=== PATIENT | female | born 1965 | race Caucasian/White ===

== ENCOUNTER 2017-05-08 13:20 | Emergency (ER) | payer SELFPAY, OTHER | END 2017-05-08 13:46 | disposition left against medical advice (07) | LOC: E/R 13:20 | DX: Z53.21 Procedure and treatment not carried out due to patient leaving prior to being seen by health care provider (principal) ==

== ENCOUNTER 2017-05-09 05:09 | Inpatient (IN) | payer OTHER ==
[2017-05-09 08:04] LABS: ADD MAN DIFF? NO
[2017-05-09] MEDS: SODIUM CHLORIDE 0.9% 1L BAG IV* (08:12)
[2017-05-09] MEDS: ONDANSETRON 4 MG INJ IV (08:12)
[2017-05-09 08:13] LABS: WHITE BLOOD COUNT 10.5 10^3/ul (4.8-10.8)
[2017-05-09 08:13] LABS: BASOPHIL # 0.1 10^3/ul (0.0-0.1); BASOPHILS % 0.5 % (0.0-2.0); EOSINOPHILS # 0.1 10^3/ul (0.0-0.5); EOSINOPHILS % 0.7 % (0.0-7.0); HEMATOCRIT 41.1 % (37.0-47.0); HEMOGLOBIN 14.3 g/dl (12.0-16.0); LYMPHOCYTES # 1.8 10^3/ul (0.8-2.9); LYMPHOCYTES % 16.6 % (15.0-51.0); MEAN CORPUSCULAR HEMOGLOBIN 31.6 pg (29.0-33.0); MEAN CORPUSCULAR HGB CONC 34.8 g/dl (32.0-37.0); MEAN CORPUSCULAR VOLUME 90.7 fl (82.0-101.0); MONOCYTE # 0.9 10^3/ul (0.3-0.9); MONOCYTES % 8.4 % (0.0-11.0); NEUTROPHIL # 7.7 10^3/ul (1.6-7.5); NEUTROPHILS % 73.3 % (39.0-77.0); NUCLEATED RED BLOOD CELLS% 0.3 /100WBC (0.0-0.0); PLATELET COUNT 284 10^3/UL (140-415); RED BLOOD COUNT 4.53 10^6/ul (4.20-5.40); RED CELL DISTRIBUTION WIDTH 12.3 % (11.5-14.5)
[2017-05-09] MEDS: morphine 4 MG/ML VIAL IV (08:13)
[2017-05-09] MEDS: PIPER-TAZO 3.375 GM IV (PMX) 100 ML IVPB (08:13)
[2017-05-09 08:26] LABS: INR 0.86; PARTIAL THROMBOPLASTIN TIME 26.8 Sec (25.0-35.0); PROTIME 11.8 Sec (11.9-14.9); PT RATIO 0.9
[2017-05-09 08:29] LABS: ALANINE AMINOTRANSFERASE 27 IU/L (13-69); ALBUMIN/GLOBULIN RATIO 1.11; ALKALINE PHOSPHATASE 121 IU/L (42-121); ANION GAP 14 (8-16); ASPARTATE AMINO TRANSFERASE 19 IU/L (15-46); BILIRUBIN,INDIRECT 0.4 mg/dl (0-1.1); BILIRUBIN,TOTAL 0.4 mg/dl (0.2-1.3); BLOOD UREA NITROGEN 18 mg/dl (7-20); CALCIUM 9.8 mg/dl (8.4-10.2); CARBON DIOXIDE 28 mmol/L (21-31); CHLORIDE 100 mmol/L (97-110); CREATININE 0.59 mg/dl (0.44-1.00); GLUCOSE 367 mg/dl (70-220); POTASSIUM 4.4 mmol/L (3.5-5.1); SODIUM 138 mmol/L (135-144); TOTAL PROTEIN 7.6 g/dl (6.1-8.1)
[2017-05-09 08:29] LABS: LACTIC ACID 1.4 mmol/L (0.5-2.0)
[2017-05-09 08:40] LABS: TROPONIN-I < 0.012 ng/ml (0.00-0.12)
[2017-05-09] MEDS: VANCOMYCIN 1 GM (PMX) 250 ML IVPB (09:33)
[2017-05-09] MEDS ORDERED: ONDANSETRON 4 MG INJ IV (11:00)
[2017-05-09] MEDS ORDERED: ACETAMINOPHEN 325 MG TAB PO (11:00)
[2017-05-09 11:24] LABS: LACTIC ACID 1.1 mmol/L (0.5-2.0)
[2017-05-09 13:08] LABS: LACTIC ACID 0.9 mmol/L (0.5-2.0)
[2017-05-09 13:13] LABS: ADD UMIC YES; UR ASCORBIC ACID NEGATIVE (NEGATIVE); UR BACTERIA FEW /HPF (NONE SEEN); UR BILIRUBIN (Dip) NEGATIVE (NEGATIVE); UR BLOOD (Dip) NEGATIVE (NEGATIVE); UR CLARITY CLEAR (CLEAR); UR COLOR STRAW (YELLOW); UR GLUCOSE (Dip) 3+ mg/dL (NEGATIVE); UR KETONES (Dip) TRACE mg/dL (NEGATIVE); UR LEUKOCYTE ESTERASE (Dip) 2+ Leu/ul (NEGATIVE); UR NITRITE (Dip) NEGATIVE (NEGATIVE); UR RBC 2 /HPF (0-5); UR SQUAMOUS EPITHELIAL CELL FEW /HPF (FEW); UR TOTAL PROTEIN (Dip) NEGATIVE (NEGATIVE); UR UROBILINOGEN (Dip) NEGATIVE (NEGATIVE); UR WBC 10 /HPF (0-5)
[2017-05-09] MEDS ORDERED: PIPER-TAZO 3.375 GM IV (PMX) 100 ML IVPB (15:30)
[2017-05-09] MEDS ORDERED: VANCOMYCIN IV PER PHARMACY XX (15:30)
[2017-05-09] MEDS: LEVOFLOXACIN 500MG/D5W (PMX) 100 ML IVPB (16:22)
[2017-05-09] MEDS ORDERED: GLUCOSE GEL 15 GRAM TUBE PO ×2 (18:00)
[2017-05-09] MEDS ORDERED: GLUCOSE GEL 15 GRAM TUBE BUCCAL (18:00)
[2017-05-09] MEDS ORDERED: GLUCAGON 1 MG INJ IM (18:00)
[2017-05-09] MEDS ORDERED: DEXTROSE 50% 50 ML SYRINGE IV ×2 (18:00)
[2017-05-09] MEDS: INSULIN ASPART [NOVOLOG] 3 ML PEN SC (19:20)
[2017-05-09] MEDS: metFORMIN 500 MG TAB PO (19:21)
[2017-05-09 19:36] LABS: CREATINE KINASE 41 IU/L (23-200)
[2017-05-09 19:47] LABS: CK INDEX 3.2; CK-MB 1.32 ng/ml (0.0-2.4)
[2017-05-09 19:52] LABS: TROPONIN-I < 0.012 ng/ml (0.00-0.12)
[2017-05-09] MEDS: GABAPENTIN 300 MG CAP PO (20:37)
[2017-05-09] MEDS: VANCOMYCIN 1.5 GM in DEXTROSE 5% 500 ML IVPB (20:37)
[2017-05-09] MEDS: ATORVASTATIN 20 MG TAB PO (20:37)
[2017-05-09] MEDS: SENNA TAB PO (20:37)
[2017-05-09] MEDS: INSULIN GLARGINE [LANtus] 3 ML PEN SC (20:40)
[2017-05-09] MEDS ORDERED: NON-FORMULARY/PATIENT OWN MED (Sitagliptin Phos/Metformin HCl (Janumet 50-1,000 mg Tablet) PO (21:00)
[2017-05-10 02:30] LABS: CREATINE KINASE 32 IU/L (23-200)
[2017-05-10 02:43] LABS: CK INDEX 2.2; CK-MB 0.71 ng/ml (0.0-2.4)
[2017-05-10 02:44] LABS: TROPONIN-I < 0.012 ng/ml (0.00-0.12)
[2017-05-10 06:08] LABS: ADD MAN DIFF? NO
[2017-05-10 06:20] LABS: BASOPHILS % 0.4 % (0.0-2.0); EOSINOPHILS # 0.2 10^3/ul (0.0-0.5); HEMATOCRIT 35.6 % (37.0-47.0); HEMOGLOBIN 12.1 g/dl (12.0-16.0); LYMPHOCYTES # 2.2 10^3/ul (0.8-2.9); LYMPHOCYTES % 23.6 % (15.0-51.0); MEAN CORPUSCULAR VOLUME 91.3 fl (82.0-101.0); MEAN PLATELET VOLUME 10.7 fl (7.4-10.4); MONOCYTES % 10.7 % (0.0-11.0); NEUTROPHIL # 5.8 10^3/ul (1.6-7.5); PLATELET COUNT 269 10^3/UL (140-415); RED CELL DISTRIBUTION WIDTH 12.4 % (11.5-14.5)
[2017-05-10 06:20] LABS: WHITE BLOOD COUNT 9.2 10^3/ul (4.8-10.8)
[2017-05-10 07:11] LABS: ANION GAP 9 (8-16); BLOOD UREA NITROGEN 13 mg/dl (7-20); CALCIUM 9.3 mg/dl (8.4-10.2); CARBON DIOXIDE 29 mmol/L (21-31); CHLORIDE 103 mmol/L (97-110); CREATININE 0.69 mg/dl (0.44-1.00); GLUCOSE 260 mg/dl (70-220); MAGNESIUM 1.5 mg/dl (1.7-2.5); PHOSPHORUS 3.3 mg/dl (2.5-4.9); POTASSIUM 4.3 mmol/L (3.5-5.1); SODIUM 137 mmol/L (135-144)
[2017-05-10 07:18] LABS: HEMOGLOBIN A1C 11.7 % (0-5.9)
[2017-05-10] MEDS: LORATADINE 10 MG TAB PO (08:11)
[2017-05-10] MEDS: metFORMIN 500 MG TAB PO (08:12)
[2017-05-10] MEDS: LINAGLIPTIN 5 MG TABLET PO (08:12)
[2017-05-10] MEDS: ASPIRIN (EC) 81 MG TAB PO (08:12)
[2017-05-10] MEDS: SENNA TAB PO ×2 (08:12→20:07)
[2017-05-10] MEDS: GABAPENTIN 300 MG CAP PO ×3 (08:12→20:06)
[2017-05-10] MEDS: VANCOMYCIN 750 MG in DEXTROSE 5% 150 ML IVPB ×2 (08:13→20:06)
[2017-05-10] MEDS: INSULIN ASPART [NOVOLOG] 3 ML PEN SC ×6 (08:16→20:14)
[2017-05-10] MEDS: COLLAGENASE 30 GM TUBE TOP (10:57)
[2017-05-10] MEDS: HEPARIN 5,000 UNIT/0.5 ML VIAL SC ×2 (12:02→20:17)
[2017-05-10] MEDS: MAGNESIUM SULFATE 2 GM/50 ML 50 ML IVPB (13:00)
[2017-05-10] MEDS: LEVOFLOXACIN 500MG/D5W (PMX) 100 ML IVPB (15:39)
[2017-05-10] MEDS: ATORVASTATIN 20 MG TAB PO (20:08)
[2017-05-10] MEDS: INSULIN GLARGINE [LANtus] 3 ML PEN SC (20:17)
[2017-05-11] MEDS: ACCU-CHEK XX (01:34)
[2017-05-11 07:45] LABS: ADD MAN DIFF? NO
[2017-05-11 07:52] LABS: WHITE BLOOD COUNT 9.8 10^3/ul (4.8-10.8)
[2017-05-11 07:52] LABS: BASOPHIL # 0.1 10^3/ul (0.0-0.1); BASOPHILS % 0.5 % (0.0-2.0); EOSINOPHILS # 0.1 10^3/ul (0.0-0.5); EOSINOPHILS % 1.1 % (0.0-7.0); HEMATOCRIT 38.1 % (37.0-47.0); HEMOGLOBIN 12.8 g/dl (12.0-16.0); LYMPHOCYTES # 2.3 10^3/ul (0.8-2.9); LYMPHOCYTES % 23.8 % (15.0-51.0); MEAN CORPUSCULAR HEMOGLOBIN 30.9 pg (29.0-33.0); MEAN CORPUSCULAR HGB CONC 33.6 g/dl (32.0-37.0); MEAN PLATELET VOLUME 10.8 fl (7.4-10.4); MONOCYTE # 1.1 10^3/ul (0.3-0.9); NEUTROPHIL # 6.2 10^3/ul (1.6-7.5); NEUTROPHILS % 63.1 % (39.0-77.0); PLATELET COUNT 293 10^3/UL (140-415); RED BLOOD COUNT 4.14 10^6/ul (4.20-5.40); RED CELL DISTRIBUTION WIDTH 12.1 % (11.5-14.5)
[2017-05-11 08:16] LABS: ANION GAP 14 (8-16); BLOOD UREA NITROGEN 16 mg/dl (7-20); CALCIUM 9.4 mg/dl (8.4-10.2); CARBON DIOXIDE 28 mmol/L (21-31); CHLORIDE 102 mmol/L (97-110); CREATININE 0.69 mg/dl (0.44-1.00); GLUCOSE 264 mg/dl (70-220); MAGNESIUM 1.4 mg/dl (1.7-2.5); POTASSIUM 3.9 mmol/L (3.5-5.1); SODIUM 140 mmol/L (135-144)
[2017-05-11 08:16] LABS: PHOSPHORUS 3.9 mg/dl (2.5-4.9)
[2017-05-11 08:18] LABS: VANCOMYCIN,TROUGH 12.1 ug/ml (10.0-20.0)
[2017-05-11] MEDS: GABAPENTIN 300 MG CAP PO ×3 (08:34→20:28)
[2017-05-11] MEDS: ASPIRIN (EC) 81 MG TAB PO (08:34)
[2017-05-11] MEDS: SENNA TAB PO ×2 (08:34→20:28)
[2017-05-11] MEDS: LORATADINE 10 MG TAB PO (08:34)
[2017-05-11] MEDS: COLLAGENASE 30 GM TUBE TOP (08:35)
[2017-05-11] MEDS: HEPARIN 5,000 UNIT/0.5 ML VIAL SC ×2 (08:41→20:31)
[2017-05-11] MEDS: INSULIN ASPART [NOVOLOG] 3 ML PEN SC ×7 (08:41→20:29)
[2017-05-11] MEDS: VANCOMYCIN 750 MG in DEXTROSE 5% 150 ML IVPB ×2 (08:49→20:29)
[2017-05-11] MEDS: MAGNESIUM SULFATE 2 GM/50 ML 50 ML IVPB (13:43)
[2017-05-11] MEDS: LEVOFLOXACIN 500MG/D5W (PMX) 100 ML IVPB (16:20)
[2017-05-11] MEDS: ATORVASTATIN 20 MG TAB PO (20:28)
[2017-05-11] MEDS: INSULIN GLARGINE [LANtus] 3 ML PEN SC (20:33)
[2017-05-11] MEDS ORDERED: INSULIN GLARGINE [LANtus] 3 ML PEN SC (21:00)
[2017-05-12] MEDS: traMADol 50 MG TAB PO (00:08)
[2017-05-12] MEDS: ACCU-CHEK XX (02:00)
[2017-05-12 05:32] LABS: ADD MAN DIFF? NO
[2017-05-12 05:40] LABS: BASOPHIL # 0.1 10^3/ul (0.0-0.1); BASOPHILS % 0.6 % (0.0-2.0); EOSINOPHILS # 0.2 10^3/ul (0.0-0.5); EOSINOPHILS % 2.4 % (0.0-7.0); HEMATOCRIT 40.1 % (37.0-47.0); HEMOGLOBIN 13.7 g/dl (12.0-16.0); LYMPHOCYTES # 2.2 10^3/ul (0.8-2.9); LYMPHOCYTES % 28.4 % (15.0-51.0); MEAN CORPUSCULAR HEMOGLOBIN 31.2 pg (29.0-33.0); MEAN CORPUSCULAR HGB CONC 34.2 g/dl (32.0-37.0); MEAN CORPUSCULAR VOLUME 91.3 fl (82.0-101.0); MEAN PLATELET VOLUME 10.6 fl (7.4-10.4); MONOCYTE # 0.8 10^3/ul (0.3-0.9); MONOCYTES % 9.8 % (0.0-11.0); NEUTROPHIL # 4.6 10^3/ul (1.6-7.5); NEUTROPHILS % 58.4 % (39.0-77.0); PLATELET COUNT 327 10^3/UL (140-415); RED BLOOD COUNT 4.39 10^6/ul (4.20-5.40); RED CELL DISTRIBUTION WIDTH 12.3 % (11.5-14.5)
[2017-05-12 05:40] LABS: WHITE BLOOD COUNT 7.8 10^3/ul (4.8-10.8)
[2017-05-12 06:08] LABS: MAGNESIUM 1.6 mg/dl (1.7-2.5)
[2017-05-12 06:08] LABS: PHOSPHORUS 4.4 mg/dl (2.5-4.9)
[2017-05-12 06:19] LABS: ANION GAP 13 (8-16); BLOOD UREA NITROGEN 15 mg/dl (7-20); CALCIUM 9.8 mg/dl (8.4-10.2); CARBON DIOXIDE 30 mmol/L (21-31); CHLORIDE 101 mmol/L (97-110); CREATININE 0.68 mg/dl (0.44-1.00); GLUCOSE 305 mg/dl (70-220); SODIUM 140 mmol/L (135-144)
[2017-05-12] MEDS: SENNA TAB PO ×2 (08:06→21:03)
[2017-05-12] MEDS: ASPIRIN (EC) 81 MG TAB PO (08:06)
[2017-05-12] MEDS: VANCOMYCIN 750 MG in DEXTROSE 5% 150 ML IVPB ×2 (08:06→20:57)
[2017-05-12] MEDS: LORATADINE 10 MG TAB PO (08:06)
[2017-05-12] MEDS: GABAPENTIN 300 MG CAP PO ×3 (08:06→21:03)
[2017-05-12] MEDS: INSULIN ASPART [NOVOLOG] 3 ML PEN SC ×7 (08:12→21:00)
[2017-05-12] MEDS: COLLAGENASE 30 GM TUBE TOP (08:13)
[2017-05-12] MEDS: HEPARIN 5,000 UNIT/0.5 ML VIAL SC ×2 (08:13→21:04)
[2017-05-12] MEDS: MAGNESIUM SULFATE 1 GM/D5W 100 ML IVPB (11:56)
[2017-05-12] MEDS: LEVOFLOXACIN 500MG/D5W (PMX) 100 ML IVPB (16:03)
[2017-05-12] MEDS: ATORVASTATIN 20 MG TAB PO (21:02)
[2017-05-12] MEDS: INSULIN GLARGINE [LANtus] 3 ML PEN SC (21:06)
[2017-05-13] MEDS: ACCU-CHEK XX (02:00)
[2017-05-13] MEDS: VANCOMYCIN 750 MG in DEXTROSE 5% 150 ML IVPB ×2 (07:57→20:18)
[2017-05-13] MEDS: COLLAGENASE 30 GM TUBE TOP (08:01)
[2017-05-13] MEDS: LORATADINE 10 MG TAB PO (08:01)
[2017-05-13] MEDS: ASPIRIN (EC) 81 MG TAB PO (08:01)
[2017-05-13] MEDS: SENNA TAB PO ×2 (08:01→20:19)
[2017-05-13] MEDS: GABAPENTIN 300 MG CAP PO ×3 (08:01→20:19)
[2017-05-13] MEDS: HEPARIN 5,000 UNIT/0.5 ML VIAL SC ×2 (08:04→20:25)
[2017-05-13] MEDS: INSULIN ASPART [NOVOLOG] 3 ML PEN SC ×7 (08:05→20:25)
[2017-05-13] MEDS: ACETAMINOPHEN 325 MG TAB PO (08:36)
[2017-05-13] MEDS: traMADol 50 MG TAB PO (20:02)
[2017-05-13] MEDS: ATORVASTATIN 20 MG TAB PO (20:19)
[2017-05-13] MEDS: INSULIN GLARGINE [LANtus] 3 ML PEN SC (20:25)
[2017-05-14] MEDS: ACETAMINOPHEN 325 MG TAB PO (00:33)
[2017-05-14] MEDS: ACCU-CHEK XX (02:02)
[2017-05-14] MEDS: INSULIN ASPART [NOVOLOG] 3 ML PEN SC ×4 (07:59→12:05)
[2017-05-14] MEDS: ASPIRIN (EC) 81 MG TAB PO (08:01)
[2017-05-14] MEDS: GABAPENTIN 300 MG CAP PO ×2 (08:01→12:56)
[2017-05-14] MEDS: LORATADINE 10 MG TAB PO (08:01)
[2017-05-14] MEDS: COLLAGENASE 30 GM TUBE TOP (08:02)
[2017-05-14] MEDS: SENNA TAB PO (08:41)
[2017-05-14] MEDS: HEPARIN 5,000 UNIT/0.5 ML VIAL SC (08:43)
[2017-05-14] MEDS: VANCOMYCIN 750 MG in DEXTROSE 5% 150 ML IVPB (09:39)
[2017-05-14] MEDS ORDERED: INSULIN GLARGINE [LANtus] 3 ML PEN SC (21:00)
== END 2017-05-14 16:32 | disposition home health service (06) | DRG 638 ==
LOC: E/R 05:09 → MS2 10:49
DX: E11.621 Type 2 diabetes mellitus with foot ulcer (principal); L03.115 Cellulitis of right lower limb; L97.519 Non-pressure chronic ulcer of other part of right foot with unspecified severity; E11.42 Type 2 diabetes mellitus with diabetic polyneuropathy; N39.0 Urinary tract infection, site not specified; E11.65 Type 2 diabetes mellitus with hyperglycemia; I10 Essential (primary) hypertension; Z86.73 Personal history of transient ischemic attack (TIA), and cerebral infarction without residual deficits; R07.9 Chest pain, unspecified; Z95.1 Presence of aortocoronary bypass graft; B95.2 Enterococcus as the cause of diseases classified elsewhere; B95.7 Other staphylococcus as the cause of diseases classified elsewhere
CPT/HCPCS: 36415; 71045; 73630; 73718; 80048; 80053; 80202; 81001; 82550; 82553; 82962; 83036; 83605; 83735; 84100; 84484; 85025; 85610; 85730; 87040; 87045; 87070; 87081; 87086; 93005; 96365; 96366; 96368; 96375; 97163; 99285-25

== ENCOUNTER 2017-07-14 17:01 | Emergency (ER) | payer OTHER ==
[2017-07-14] MEDS: SOD CHLORIDE 0.9% 1,000 ML IV (18:28)
[2017-07-14] MEDS: ONDANSETRON 4 MG INJ IV (18:28)
[2017-07-14] MEDS: morphine 4 MG/ML VIAL IV (18:28)
[2017-07-14 18:32] LABS: ADD MAN DIFF? NO
[2017-07-14 18:37] LABS: BASOPHILS % 0.4 % (0.0-2.0); EOSINOPHILS # 0.1 10^3/ul (0.0-0.5); EOSINOPHILS % 0.8 % (0.0-7.0); HEMOGLOBIN 14.2 g/dl (12.0-16.0); LYMPHOCYTES # 2.4 10^3/ul (0.8-2.9); LYMPHOCYTES % 25.5 % (15.0-51.0); MEAN CORPUSCULAR HEMOGLOBIN 30.9 pg (29.0-33.0); MEAN CORPUSCULAR HGB CONC 34.6 g/dl (32.0-37.0); MEAN CORPUSCULAR VOLUME 89.1 fl (82.0-101.0); MEAN PLATELET VOLUME 10.6 fl (7.4-10.4); MONOCYTE # 0.6 10^3/ul (0.3-0.9); MONOCYTES % 6.9 % (0.0-11.0); NEUTROPHIL # 6.1 10^3/ul (1.6-7.5); PLATELET COUNT 292 10^3/UL (140-415); RED CELL DISTRIBUTION WIDTH 12.5 % (11.5-14.5)
[2017-07-14 18:37] LABS: WHITE BLOOD COUNT 9.3 10^3/ul (4.8-10.8)
[2017-07-14 18:43] LABS: ADD UMIC YES; UR ASCORBIC ACID NEGATIVE (NEGATIVE); UR BACTERIA FEW /HPF (NONE SEEN); UR BILIRUBIN (Dip) NEGATIVE (NEGATIVE); UR BLOOD (Dip) NEGATIVE (NEGATIVE); UR CLARITY CLOUDY (CLEAR); UR COLOR YELLOW (YELLOW); UR GLUCOSE (Dip) 1+ mg/dL (NEGATIVE); UR KETONES (Dip) NEGATIVE (NEGATIVE); UR LEUKOCYTE ESTERASE (Dip) 3+ Leu/ul (NEGATIVE); UR MUCUS FEW /HPF (NONE SEEN); UR NITRITE (Dip) NEGATIVE (NEGATIVE); UR RBC 10 /HPF (0-5); UR SPECIFIC GRAVITY (Dip) 1.015 (1.003-1.030); UR SQUAMOUS EPITHELIAL CELL MODERATE /HPF (FEW); UR TOTAL PROTEIN (Dip) NEGATIVE (NEGATIVE); UR UROBILINOGEN (Dip) NEGATIVE (NEGATIVE); UR WBC 178 /HPF (0-5)
[2017-07-14 19:16] LABS: ALANINE AMINOTRANSFERASE 19 IU/L (13-69); ALBUMIN 4.2 g/dl (3.3-4.9); ALBUMIN/GLOBULIN RATIO 1.05; ALKALINE PHOSPHATASE 130 IU/L (42-121); ANION GAP 15 (8-16); ASPARTATE AMINO TRANSFERASE 20 IU/L (15-46); BILIRUBIN,INDIRECT 0.2 mg/dl (0-1.1); BILIRUBIN,TOTAL 0.2 mg/dl (0.2-1.3); BLOOD UREA NITROGEN 26 mg/dl (7-20); CALCIUM 9.5 mg/dl (8.4-10.2); CARBON DIOXIDE 29 mmol/L (21-31); CHLORIDE 100 mmol/L (97-110); CREATININE 0.83 mg/dl (0.44-1.00); GLUCOSE 193 mg/dl (70-220); LIPASE 158 U/L (23-300); POTASSIUM 4.4 mmol/L (3.5-5.1); SODIUM 140 mmol/L (135-144); TOTAL PROTEIN 8.2 g/dl (6.1-8.1)
[2017-07-14] MEDS: KETOROLAC 30 MG INJ IV (19:41)
[2017-07-14] MEDS: METHOCARBAMOL 750 MG TAB PO (19:41)
== END 2017-07-14 23:26 | disposition home or self-care (01) ==
LOC: E/R 17:01
DX: N12 Tubulo-interstitial nephritis, not specified as acute or chronic (principal); K59.00 Constipation, unspecified; E11.9 Type 2 diabetes mellitus without complications; Z79.82 Long term (current) use of aspirin; Z79.4 Long term (current) use of insulin
CPT/HCPCS: 36415; 74176; 80053; 81001; 83690; 85025; 96374; 96375; 99285-25

== ENCOUNTER 2017-08-20 05:54 | Inpatient (IN) | payer OTHER ==
[2017-08-20] MEDS ORDERED: morphine 2 MG INJ IV ×2 (07:00→12:00)
[2017-08-20] MEDS ORDERED: ACETAMINOPHEN 325 MG TAB PO ×2 (07:00→12:00)
[2017-08-20] MEDS ORDERED: DEXTROSE 50% 50 ML SYRINGE IV ×2 (08:00)
[2017-08-20] MEDS ORDERED: GLUCOSE GEL 15 GRAM TUBE PO ×2 (08:00)
[2017-08-20] MEDS ORDERED: GLUCOSE GEL 15 GRAM TUBE BUCCAL (08:00)
[2017-08-20] MEDS ORDERED: GLUCAGON 1 MG INJ IM (08:00)
[2017-08-20] MEDS: INSULIN ASPART [NOVOLOG] 3 ML PEN SC ×6 (08:18→20:51)
[2017-08-20] MEDS ORDERED: INSULIN ASPART [NOVOLOG] 3 ML PEN SC (11:50)
[2017-08-20] MEDS ORDERED: DOCUSATE SODIUM 100 MG CAP PO (12:00)
[2017-08-20] MEDS: Discontinue current oral sulfonylureas (glyburide, glipizide, and/or glimepiride) prior to XX (12:00)
[2017-08-20] MEDS ORDERED: HYDROCODONE/APAP (5/325) TAB PO ×2 (12:00)
[2017-08-20] MEDS ORDERED: ONDANSETRON 4 MG INJ IV (12:00)
[2017-08-20] MEDS ORDERED: NACL 0.9% 3 ML SYG IV (12:00)
[2017-08-20] MEDS: HYPOGLYCEMIA PROTOCOL when Glucose is <70 mg/dL or symptomatic <90 mg/dL. XX (12:00)
[2017-08-20] MEDS ORDERED: NAPROXEN 500 MG TAB PO (12:00)
[2017-08-20] MEDS ORDERED: BISACODYL 10 MG SUPP PR (12:00)
[2017-08-20] MEDS ORDERED: ACETAMINOPHEN 650 MG SUPP PR (12:00)
[2017-08-20] MEDS: SOD CHLORIDE 0.9% 1,000 ML IV (12:58)
[2017-08-20] MEDS: GABAPENTIN 300 MG CAP PO ×2 (12:59→20:48)
[2017-08-20] MEDS: MAGNESIUM CITRATE 300 ML BTL PO (13:52)
[2017-08-20] MEDS: ACETAMINOPHEN 325 MG TAB PO ×2 (14:16→20:47)
[2017-08-20] MEDS: CEFTRIAXONE 2 GM/50 ML (PMX) 50 ML IVPB (14:37)
[2017-08-20] MEDS: LINAGLIPTIN 5 MG TABLET PO (15:24)
[2017-08-20] MEDS: metFORMIN 500 MG TAB PO (17:32)
[2017-08-20] MEDS: FLUTICASONE 0.05% 16 GM NAS SPRAY NASAL (20:46)
[2017-08-20] MEDS: ATORVASTATIN 20 MG TAB PO (20:48)
[2017-08-20] MEDS: INSULIN GLARGINE [LANtus] 3 ML PEN SC (20:54)
[2017-08-20] MEDS ORDERED: NITROFURANTOIN (SR) 100 MG CAP PO (21:00)
[2017-08-21] MEDS: PIPER-TAZO 3.375 GM IV (PMX) 100 ML IVPB ×5 (00:10→23:59)
[2017-08-21] MEDS ORDERED: ACCU-CHEK XX (02:00)
[2017-08-21] MEDS: SOD CHLORIDE 0.9% 1,000 ML IV ×2 (02:09→17:06)
[2017-08-21] MEDS: ACCU-CHEK XX (02:10)
[2017-08-21] MEDS: PANTOPRAZOLE (EC) 40 MG TAB PO (06:29)
[2017-08-21] MEDS: ACETAMINOPHEN 325 MG TAB PO ×2 (06:29→11:38)
[2017-08-21 06:31] LABS: ADD MAN DIFF? NO
[2017-08-21 06:38] LABS: BASOPHILS % 0.5 % (0.0-2.0); EOSINOPHILS # 0.1 10^3/ul (0.0-0.5); EOSINOPHILS % 1.4 % (0.0-7.0); HEMATOCRIT 39.4 % (37.0-47.0); HEMOGLOBIN 13.1 g/dl (12.0-16.0); LYMPHOCYTES # 1.7 10^3/ul (0.8-2.9); LYMPHOCYTES % 20.9 % (15.0-51.0); MEAN CORPUSCULAR HGB CONC 33.2 g/dl (32.0-37.0); MEAN CORPUSCULAR VOLUME 93.1 fl (82.0-101.0); MONOCYTE # 0.9 10^3/ul (0.3-0.9); MONOCYTES % 11.6 % (0.0-11.0); NEUTROPHIL # 5.2 10^3/ul (1.6-7.5); NEUTROPHILS % 65.3 % (39.0-77.0); PLATELET COUNT 264 10^3/UL (140-415); RED BLOOD COUNT 4.23 10^6/ul (4.20-5.40); RED CELL DISTRIBUTION WIDTH 13.2 % (11.5-14.5)
[2017-08-21 06:38] LABS: WHITE BLOOD COUNT 7.9 10^3/ul (4.8-10.8)
[2017-08-21] MEDS ORDERED: POLYETHYLENE GLYCOL 17 GM PACKET PO (07:00)
[2017-08-21 07:03] LABS: LACTIC ACID 0.9 mmol/L (0.5-2.0)
[2017-08-21 07:05] LABS: ALANINE AMINOTRANSFERASE 22 IU/L (13-69); ALBUMIN 2.8 g/dl (3.3-4.9); ALKALINE PHOSPHATASE 127 IU/L (42-121); ANION GAP 10 (8-16); ASPARTATE AMINO TRANSFERASE 24 IU/L (15-46); BILIRUBIN,INDIRECT 0.2 mg/dl (0-1.1); BILIRUBIN,TOTAL 0.2 mg/dl (0.2-1.3); BLOOD UREA NITROGEN 13 mg/dl (7-20); CALCIUM 8.6 mg/dl (8.4-10.2); CARBON DIOXIDE 26 mmol/L (21-31); CHLORIDE 111 mmol/L (97-110); CHOL/HDL RATIO 5.3 RATIO; CHOLESTEROL 193 mg/dl (100-200); GLUCOSE 184 mg/dl (70-220); HDL CHOLESTEROL 36 mg/dl (37-92); LDL CHOLESTEROL,CALCULATED 115 mg/dl; MAGNESIUM 2.1 mg/dl (1.7-2.5); POTASSIUM 4.3 mmol/L (3.5-5.1); SODIUM 143 mmol/L (135-144); TOTAL PROTEIN 5.9 g/dl (6.1-8.1); TRIGLYCERIDES 210 mg/dl (0-149)
[2017-08-21 07:05] LABS: HEMOGLOBIN A1C 10.8 % (0-5.9)
[2017-08-21 07:17] LABS: FREE THYROXINE INDEX (Calc) 2.09 ug/ml (0.65-3.89); T3 UPTAKE 36.6 % (23.5-40.5); T4 (THYROXINE) 5.7 ug/dl (5.5-11.0)
[2017-08-21] MEDS: LORATADINE 10 MG TAB PO (08:35)
[2017-08-21] MEDS: GABAPENTIN 300 MG CAP PO ×3 (08:35→20:47)
[2017-08-21] MEDS: ASPIRIN (EC) 81 MG TAB PO (08:35)
[2017-08-21] MEDS: LINAGLIPTIN 5 MG TABLET PO (08:35)
[2017-08-21] MEDS: FLUTICASONE 0.05% 16 GM NAS SPRAY NASAL ×2 (08:36→20:47)
[2017-08-21] MEDS: POLYETHYLENE GLYCOL 17 GM PACKET PO ×2 (08:36→20:47)
[2017-08-21] MEDS: metFORMIN 500 MG TAB PO ×2 (08:43→17:05)
[2017-08-21] MEDS: INSULIN ASPART [NOVOLOG] 3 ML PEN SC ×7 (08:47→20:49)
[2017-08-21] MEDS: OFLOXACIN 0.3% 5 ML OPH LEFT EYE ×4 (09:00→20:46)
[2017-08-21] MEDS ORDERED: NON-FORMULARY/PATIENT OWN MED (Omeprazole* 20 MG) PO (09:00)
[2017-08-21] MEDS ORDERED: NA PHOSPHATE/BIPHOS 133 ML ENEMA PR (11:00)
[2017-08-21] MEDS: MAGNESIUM HYDROXIDE 30ML CUP PO (13:50)
[2017-08-21] MEDS: ATORVASTATIN 20 MG TAB PO (20:47)
[2017-08-21] MEDS: INSULIN GLARGINE [LANtus] 3 ML PEN SC (20:48)
[2017-08-22] MEDS: ACCU-CHEK XX (02:00)
[2017-08-22] MEDS: PIPER-TAZO 3.375 GM IV (PMX) 100 ML IVPB ×4 (05:31→23:52)
[2017-08-22] MEDS: PANTOPRAZOLE (EC) 40 MG TAB PO (05:31)
[2017-08-22] MEDS: SOD CHLORIDE 0.9% 1,000 ML IV ×2 (05:43→11:22)
[2017-08-22 06:10] LABS: ADD MAN DIFF? NO
[2017-08-22 06:18] LABS: BASOPHILS % 0.5 % (0.0-2.0); EOSINOPHILS # 0.2 10^3/ul (0.0-0.5); EOSINOPHILS % 2.4 % (0.0-7.0); HEMATOCRIT 37.3 % (37.0-47.0); HEMOGLOBIN 12.4 g/dl (12.0-16.0); LYMPHOCYTES # 1.6 10^3/ul (0.8-2.9); LYMPHOCYTES % 20.4 % (15.0-51.0); MEAN CORPUSCULAR HEMOGLOBIN 30.6 pg (29.0-33.0); MEAN CORPUSCULAR HGB CONC 33.2 g/dl (32.0-37.0); MEAN CORPUSCULAR VOLUME 92.1 fl (82.0-101.0); MEAN PLATELET VOLUME 11.5 fl (7.4-10.4); MONOCYTE # 0.9 10^3/ul (0.3-0.9); MONOCYTES % 11.1 % (0.0-11.0); NEUTROPHIL # 5.2 10^3/ul (1.6-7.5); NEUTROPHILS % 65.2 % (39.0-77.0); PLATELET COUNT 248 10^3/UL (140-415); RED BLOOD COUNT 4.05 10^6/ul (4.20-5.40); RED CELL DISTRIBUTION WIDTH 13.2 % (11.5-14.5)
[2017-08-22 06:35] LABS: PHOSPHORUS 2.8 mg/dl (2.5-4.9)
[2017-08-22 06:39] LABS: ALANINE AMINOTRANSFERASE 14 IU/L (13-69); ALBUMIN/GLOBULIN RATIO 0.93; ALKALINE PHOSPHATASE 132 IU/L (42-121); ANION GAP 10 (8-16); ASPARTATE AMINO TRANSFERASE 20 IU/L (15-46); BILIRUBIN,INDIRECT 0.1 mg/dl (0-1.1); BILIRUBIN,TOTAL 0.1 mg/dl (0.2-1.3); BLOOD UREA NITROGEN 11 mg/dl (7-20); CALCIUM 8.4 mg/dl (8.4-10.2); CARBON DIOXIDE 27 mmol/L (21-31); CHLORIDE 111 mmol/L (97-110); CREATININE 0.61 mg/dl (0.44-1.00); GLUCOSE 219 mg/dl (70-220); POTASSIUM 4.1 mmol/L (3.5-5.1); SODIUM 144 mmol/L (135-144); TOTAL PROTEIN 6.2 g/dl (6.1-8.1)
[2017-08-22] MEDS: INSULIN ASPART [NOVOLOG] 3 ML PEN SC ×7 (08:07→20:39)
[2017-08-22] MEDS: FLUTICASONE 0.05% 16 GM NAS SPRAY NASAL ×2 (08:08→20:31)
[2017-08-22] MEDS: LORATADINE 10 MG TAB PO (08:09)
[2017-08-22] MEDS: metFORMIN 500 MG TAB PO ×2 (08:09→17:18)
[2017-08-22] MEDS: OFLOXACIN 0.3% 5 ML OPH LEFT EYE ×4 (08:09→20:28)
[2017-08-22] MEDS: ASPIRIN (EC) 81 MG TAB PO (08:09)
[2017-08-22] MEDS: LINAGLIPTIN 5 MG TABLET PO (08:09)
[2017-08-22] MEDS: POLYETHYLENE GLYCOL 17 GM PACKET PO ×2 (08:09→20:33)
[2017-08-22] MEDS: GABAPENTIN 300 MG CAP PO ×3 (08:09→20:31)
[2017-08-22] MEDS: ENOXAPARIN 40 MG/0.4 ML SYG SC (08:51)
[2017-08-22] MEDS ORDERED: morphine LIQ (10 MG/5 ML) CUP PO (17:30)
[2017-08-22] MEDS: ATORVASTATIN 20 MG TAB PO (20:31)
[2017-08-22] MEDS: INSULIN GLARGINE [LANtus] 3 ML PEN SC (20:39)
[2017-08-23] MEDS: ACETAMINOPHEN 325 MG TAB PO (00:30)
[2017-08-23] MEDS: ACCU-CHEK XX (01:57)
[2017-08-23] MEDS: PANTOPRAZOLE (EC) 40 MG TAB PO (05:27)
[2017-08-23] MEDS: PIPER-TAZO 3.375 GM IV (PMX) 100 ML IVPB ×2 (05:27→12:23)
[2017-08-23] MEDS: SOD CHLORIDE 0.9% 1,000 ML IV (05:41)
[2017-08-23 07:23] LABS: ADD MAN DIFF? NO
[2017-08-23 07:34] LABS: BASOPHILS % 0.4 % (0.0-2.0); EOSINOPHILS # 0.2 10^3/ul (0.0-0.5); EOSINOPHILS % 2.5 % (0.0-7.0); HEMATOCRIT 38.1 % (37.0-47.0); HEMOGLOBIN 12.8 g/dl (12.0-16.0); LYMPHOCYTES # 1.6 10^3/ul (0.8-2.9); LYMPHOCYTES % 22.4 % (15.0-51.0); MEAN CORPUSCULAR HEMOGLOBIN 31.1 pg (29.0-33.0); MEAN CORPUSCULAR HGB CONC 33.6 g/dl (32.0-37.0); MEAN CORPUSCULAR VOLUME 92.5 fl (82.0-101.0); MEAN PLATELET VOLUME 10.5 fl (7.4-10.4); MONOCYTE # 0.7 10^3/ul (0.3-0.9); MONOCYTES % 10.2 % (0.0-11.0); NEUTROPHIL # 4.5 10^3/ul (1.6-7.5); NEUTROPHILS % 63.9 % (39.0-77.0); PLATELET COUNT 279 10^3/UL (140-415); RED BLOOD COUNT 4.12 10^6/ul (4.20-5.40); RED CELL DISTRIBUTION WIDTH 13.2 % (11.5-14.5)
[2017-08-23 07:34] LABS: WHITE BLOOD COUNT 7.1 10^3/ul (4.8-10.8)
[2017-08-23 07:53] LABS: ANION GAP 12 (8-16); BLOOD UREA NITROGEN 12 mg/dl (7-20); CALCIUM 8.7 mg/dl (8.4-10.2); CARBON DIOXIDE 27 mmol/L (21-31); CHLORIDE 107 mmol/L (97-110); CREATININE 0.61 mg/dl (0.44-1.00); GLUCOSE 224 mg/dl (70-220); POTASSIUM 4.2 mmol/L (3.5-5.1); SODIUM 142 mmol/L (135-144)
[2017-08-23 07:55] LABS: MAGNESIUM 1.7 mg/dl (1.7-2.5)
[2017-08-23 07:55] LABS: PHOSPHORUS 3.7 mg/dl (2.5-4.9)
[2017-08-23] MEDS: INSULIN ASPART [NOVOLOG] 3 ML PEN SC ×4 (08:00→12:06)
[2017-08-23] MEDS: ENOXAPARIN 40 MG/0.4 ML SYG SC (08:01)
[2017-08-23] MEDS: LORATADINE 10 MG TAB PO (08:02)
[2017-08-23] MEDS: ASPIRIN (EC) 81 MG TAB PO (08:02)
[2017-08-23] MEDS: FLUTICASONE 0.05% 16 GM NAS SPRAY NASAL (08:02)
[2017-08-23] MEDS: LINAGLIPTIN 5 MG TABLET PO (08:02)
[2017-08-23] MEDS: POLYETHYLENE GLYCOL 17 GM PACKET PO (08:02)
[2017-08-23] MEDS: metFORMIN 500 MG TAB PO (08:02)
[2017-08-23] MEDS: GABAPENTIN 300 MG CAP PO ×2 (08:02→12:07)
[2017-08-23] MEDS: OFLOXACIN 0.3% 5 ML OPH LEFT EYE ×2 (08:03→12:07)
== END 2017-08-23 13:25 | disposition home or self-care (01) | DRG 872 ==
LOC: PP2 08-21 12:28 → TEL 05:54
PROVIDERS: Internal Medicine
DX: A41.9 Sepsis, unspecified organism (principal); N39.0 Urinary tract infection, site not specified; N12 Tubulo-interstitial nephritis, not specified as acute or chronic; E11.40 Type 2 diabetes mellitus with diabetic neuropathy, unspecified; E11.65 Type 2 diabetes mellitus with hyperglycemia; I10 Essential (primary) hypertension; I25.10 Atherosclerotic heart disease of native coronary artery without angina pectoris; E78.5 Hyperlipidemia, unspecified; K59.00 Constipation, unspecified; B96.20 Unspecified Escherichia coli [E. coli] as the cause of diseases classified elsewhere; Z79.4 Long term (current) use of insulin
CPT/HCPCS: 80048; 80053; 80061; 82962; 83036; 83605; 83735; 84100; 84436; 84443; 84479; 85025; 87040; 87086

== ENCOUNTER 2017-11-22 23:55 | Emergency (ER) | payer OTHER ==
[2017-11-23 01:50] LABS: URINE BLOOD (Dip) POC Trace-intact (NEGATIVE); URINE KETONES (Dip) POC Negative (NEGATIVE); URINE LEUKOCYTE EST (Dip) POC Negative (NEGATIVE); URINE NITRITE (Dip) POC Negative (NEGATIVE); URINE TOTAL PROTEIN POC Negative (NEGATIVE)
[2017-11-23] MEDS: FAMOTIDINE 20 MG TAB PO ×2 (02:14→02:21)
[2017-11-23] MEDS: ONDANSETRON 4 MG INJ IV (02:15)
[2017-11-23] MEDS: morphine 4 MG/ML VIAL IV (02:15)
[2017-11-23] MEDS: SOD CHLORIDE 0.9% 1,000 ML IV (02:15)
[2017-11-23 02:18] LABS: ADD MAN DIFF? NO
[2017-11-23 02:20] LABS: BASOPHIL # 0.1 10^3/ul (0.0-0.1); BASOPHILS % 0.7 % (0.0-2.0); EOSINOPHILS # 0.2 10^3/ul (0.0-0.5); EOSINOPHILS % 2.9 % (0.0-7.0); HEMATOCRIT 42.5 % (37.0-47.0); HEMOGLOBIN 13.9 g/dl (12.0-16.0); LYMPHOCYTES # 2.5 10^3/ul (0.8-2.9); LYMPHOCYTES % 29.9 % (15.0-51.0); MEAN CORPUSCULAR HEMOGLOBIN 30.6 pg (29.0-33.0); MEAN CORPUSCULAR HGB CONC 32.7 g/dl (32.0-37.0); MEAN CORPUSCULAR VOLUME 93.6 fl (82.0-101.0); MEAN PLATELET VOLUME 10.9 fl (7.4-10.4); MONOCYTE # 0.8 10^3/ul (0.3-0.9); MONOCYTES % 9.5 % (0.0-11.0); NEUTROPHIL # 4.6 10^3/ul (1.6-7.5); NEUTROPHILS % 56.4 % (39.0-77.0); PLATELET COUNT 280 10^3/UL (140-415); RED BLOOD COUNT 4.54 10^6/ul (4.20-5.40); RED CELL DISTRIBUTION WIDTH 12.4 % (11.5-14.5)
[2017-11-23 02:20] LABS: WHITE BLOOD COUNT 8.2 10^3/ul (4.8-10.8)
[2017-11-23 02:26] LABS: ADD UMIC YES; UR ASCORBIC ACID NEGATIVE (NEGATIVE); UR BACTERIA FEW /HPF (NONE SEEN); UR BILIRUBIN (Dip) NEGATIVE (NEGATIVE); UR BLOOD (Dip) NEGATIVE (NEGATIVE); UR CLARITY CLEAR (CLEAR); UR COLOR STRAW (YELLOW); UR GLUCOSE (Dip) 3+ mg/dL (NEGATIVE); UR KETONES (Dip) NEGATIVE (NEGATIVE); UR LEUKOCYTE ESTERASE (Dip) TRACE Leu/ul (NEGATIVE); UR NITRITE (Dip) NEGATIVE (NEGATIVE); UR RBC 0 /HPF (0-5); UR TOTAL PROTEIN (Dip) NEGATIVE (NEGATIVE); UR UROBILINOGEN (Dip) NEGATIVE (NEGATIVE); UR WBC 2 /HPF (0-5)
[2017-11-23 02:39] LABS: ALANINE AMINOTRANSFERASE 12 IU/L (13-69); ALBUMIN 3.8 g/dl (3.3-4.9); ALBUMIN/GLOBULIN RATIO 1.08; ALKALINE PHOSPHATASE 152 IU/L (42-121); ANION GAP 15 (8-16); ASPARTATE AMINO TRANSFERASE 15 IU/L (15-46); BILIRUBIN,INDIRECT 0.2 mg/dl (0-1.1); BILIRUBIN,TOTAL 0.2 mg/dl (0.2-1.3); BLOOD UREA NITROGEN 37 mg/dl (7-20); CALCIUM 9.3 mg/dl (8.4-10.2); CARBON DIOXIDE 26 mmol/L (21-31); CHLORIDE 105 mmol/L (97-110); CREATININE 0.73 mg/dl (0.44-1.00); GLUCOSE 302 mg/dl (70-220); LIPASE 239 U/L (23-300); POTASSIUM 4.5 mmol/L (3.5-5.1); SODIUM 141 mmol/L (135-144); TOTAL PROTEIN 7.3 g/dl (6.1-8.1)
== END 2017-11-23 03:31 | disposition home or self-care (01) ==
LOC: FTE 23:55
DX: N30.00 Acute cystitis without hematuria (principal); I25.10 Atherosclerotic heart disease of native coronary artery without angina pectoris; E11.9 Type 2 diabetes mellitus without complications; Z79.4 Long term (current) use of insulin; Z79.82 Long term (current) use of aspirin
CPT/HCPCS: 36415; 80053; 81001; 81003; 81025; 83690; 85025; 96374; 96375; 99284-25

== ENCOUNTER 2017-12-01 14:05 | Emergency (ER) | payer OTHER ==
[2017-12-01 16:21] LABS: ADD UMIC NO; UR ASCORBIC ACID NEGATIVE (NEGATIVE); UR BILIRUBIN (Dip) NEGATIVE (NEGATIVE); UR BLOOD (Dip) NEGATIVE (NEGATIVE); UR CLARITY SLIGHTLY CLOUDY (CLEAR); UR COLOR YELLOW (YELLOW); UR GLUCOSE (Dip) 3+ mg/dL (NEGATIVE); UR KETONES (Dip) NEGATIVE (NEGATIVE); UR LEUKOCYTE ESTERASE (Dip) NEGATIVE Leu/ul (NEGATIVE); UR MUCUS FEW /HPF (NONE SEEN); UR NITRITE (Dip) NEGATIVE (NEGATIVE); UR NONSQUAMOUS EPITHELIAL CELL 2 /HPF (NONE SEEN); UR RBC 4 /HPF (0-5); UR SPECIFIC GRAVITY (Dip) 1.032 (1.003-1.030); UR SQUAMOUS EPITHELIAL CELL FEW /HPF (FEW); UR TOTAL PROTEIN (Dip) NEGATIVE (NEGATIVE); UR UROBILINOGEN (Dip) NEGATIVE (NEGATIVE); UR WBC 4 /HPF (0-5)
== END 2017-12-01 17:02 | disposition home or self-care (01) ==
LOC: FTE 14:05
DX: R30.0 Dysuria (principal); E11.9 Type 2 diabetes mellitus without complications; I25.10 Atherosclerotic heart disease of native coronary artery without angina pectoris; Z79.4 Long term (current) use of insulin; Z79.82 Long term (current) use of aspirin
CPT/HCPCS: 81001; 81003; 87086; 99283

== ENCOUNTER 2017-12-04 12:48 | Emergency (ER) | payer OTHER ==
[2017-12-04 14:38] LABS: ADD UMIC YES; UR ASCORBIC ACID NEGATIVE (NEGATIVE); UR BACTERIA FEW /HPF (NONE SEEN); UR BILIRUBIN (Dip) NEGATIVE (NEGATIVE); UR BLOOD (Dip) NEGATIVE (NEGATIVE); UR CLARITY CLEAR (CLEAR); UR COLOR YELLOW (YELLOW); UR GLUCOSE (Dip) 3+ mg/dL (NEGATIVE); UR KETONES (Dip) NEGATIVE (NEGATIVE); UR LEUKOCYTE ESTERASE (Dip) 1+ Leu/ul (NEGATIVE); UR NITRITE (Dip) NEGATIVE (NEGATIVE); UR NONSQUAMOUS EPITHELIAL CELL 1 /HPF (NONE SEEN); UR RBC 2 /HPF (0-5); UR SQUAMOUS EPITHELIAL CELL FEW /HPF (FEW); UR TOTAL PROTEIN (Dip) NEGATIVE (NEGATIVE); UR UROBILINOGEN (Dip) NEGATIVE (NEGATIVE); UR WBC 22 /HPF (0-5)
[2017-12-04] MEDS: KETOROLAC 30 MG INJ IV (15:03)
[2017-12-04 15:09] LABS: ADD MAN DIFF? NO
[2017-12-04 15:10] LABS: BASOPHILS % 0.5 % (0.0-2.0); EOSINOPHILS # 0.1 10^3/ul (0.0-0.5); EOSINOPHILS % 1.3 % (0.0-7.0); HEMOGLOBIN 13.3 g/dl (12.0-16.0); LYMPHOCYTES # 1.9 10^3/ul (0.8-2.9); MEAN CORPUSCULAR HEMOGLOBIN 30.9 pg (29.0-33.0); MEAN CORPUSCULAR HGB CONC 33.3 g/dl (32.0-37.0); MEAN PLATELET VOLUME 10.3 fl (7.4-10.4); MONOCYTE # 0.5 10^3/ul (0.3-0.9); MONOCYTES % 6.3 % (0.0-11.0); NEUTROPHIL # 5.4 10^3/ul (1.6-7.5); NEUTROPHILS % 67.5 % (39.0-77.0); PLATELET COUNT 248 10^3/UL (140-415); RED CELL DISTRIBUTION WIDTH 12.7 % (11.5-14.5)
[2017-12-04 15:29] LABS: ALANINE AMINOTRANSFERASE 21 IU/L (13-69); ALBUMIN 3.5 g/dl (3.3-4.9); ALBUMIN/GLOBULIN RATIO 1.02; ALKALINE PHOSPHATASE 108 IU/L (42-121); ANION GAP 12 (8-16); ASPARTATE AMINO TRANSFERASE 17 IU/L (15-46); BILIRUBIN,INDIRECT 0.5 mg/dl (0-1.1); BILIRUBIN,TOTAL 0.5 mg/dl (0.2-1.3); BLOOD UREA NITROGEN 19 mg/dl (7-20); CALCIUM 8.8 mg/dl (8.4-10.2); CARBON DIOXIDE 27 mmol/L (21-31); CHLORIDE 106 mmol/L (97-110); CREATININE 0.69 mg/dl (0.44-1.00); GLUCOSE 252 mg/dl (70-220); LIPASE 495 U/L (23-300); POTASSIUM 4.5 mmol/L (3.5-5.1); SODIUM 140 mmol/L (135-144); TOTAL PROTEIN 6.9 g/dl (6.1-8.1)
== END 2017-12-04 17:08 | disposition home or self-care (01) ==
LOC: E/R 12:48
DX: R10.84 Generalized abdominal pain (principal); R10.10 Upper abdominal pain, unspecified; E11.9 Type 2 diabetes mellitus without complications; I25.10 Atherosclerotic heart disease of native coronary artery without angina pectoris; Z79.4 Long term (current) use of insulin; Z79.82 Long term (current) use of aspirin
CPT/HCPCS: 36415; 74176; 80053; 81001; 83690; 85025; 87086; 96374; 99285-25

== ENCOUNTER 2018-06-09 07:14 | Emergency (ER) | payer OTHER ==
[2018-06-09] MEDS: ONDANSETRON 4 MG INJ IV (07:55)
[2018-06-09] MEDS: morphine 4 MG/ML VIAL IV (07:55)
[2018-06-09] MEDS: SOD CHLORIDE 0.9% 1,000 ML IV (07:55)
[2018-06-09] MEDS: BELLADONNA/PHENOBARBITAL TAB PO (07:55)
[2018-06-09] MEDS: LIDOCAINE/MYLANTA 40 ML BTL PO (07:55)
[2018-06-09 08:08] LABS: ADD MAN DIFF? NO
[2018-06-09 08:12] LABS: BASOPHILS % 0.5 % (0.0-2.0); EOSINOPHILS # 0.2 10^3/ul (0.0-0.5); EOSINOPHILS % 2.4 % (0.0-7.0); HEMATOCRIT 44.2 % (37.0-47.0); HEMOGLOBIN 14.7 g/dl (12.0-16.0); LYMPHOCYTES # 1.7 10^3/ul (0.8-2.9); LYMPHOCYTES % 27.6 % (15.0-51.0); MEAN CORPUSCULAR HGB CONC 33.3 g/dl (32.0-37.0); MEAN CORPUSCULAR VOLUME 93.2 fl (82.0-101.0); MONOCYTE # 0.5 10^3/ul (0.3-0.9); MONOCYTES % 8.6 % (0.0-11.0); NEUTROPHIL # 3.8 10^3/ul (1.6-7.5); NEUTROPHILS % 60.3 % (39.0-77.0); PLATELET COUNT 278 10^3/UL (140-415); RED BLOOD COUNT 4.74 10^6/ul (4.20-5.40); RED CELL DISTRIBUTION WIDTH 12.1 % (11.5-14.5)
[2018-06-09 08:12] LABS: WHITE BLOOD COUNT 6.3 10^3/ul (4.8-10.8)
[2018-06-09 08:34] LABS: INR 0.77; PROTIME 10.9 Sec (11.9-14.9); PT RATIO 0.9
[2018-06-09 08:35] LABS: PARTIAL THROMBOPLASTIN TIME 25.8 Sec (23.0-35.0)
[2018-06-09 08:36] LABS: ALANINE AMINOTRANSFERASE 16 IU/L (13-69); ALBUMIN 4.3 g/dl (3.3-4.9); ALBUMIN/GLOBULIN RATIO 1.19; ALKALINE PHOSPHATASE 165 IU/L (42-121); ANION GAP 11 (5-13); ASPARTATE AMINO TRANSFERASE 21 IU/L (15-46); BILIRUBIN,INDIRECT 0.3 mg/dl (0-1.1); BILIRUBIN,TOTAL 0.3 mg/dl (0.2-1.3); BLOOD UREA NITROGEN 21 mg/dl (7-20); CALCIUM 9.8 mg/dl (8.4-10.2); CARBON DIOXIDE 29 mmol/L (21-31); CHLORIDE 100 mmol/L (97-110); CREATININE 0.63 mg/dl (0.44-1.00); Estimated GFR > 60 mL/min (>60); GLUCOSE 273 mg/dl (70-220); LIPASE 527 U/L (23-300); POTASSIUM 4.8 mmol/L (3.5-5.1); SODIUM 140 mmol/L (135-144); TOTAL PROTEIN 7.9 g/dl (6.1-8.1)
[2018-06-09 08:55] LABS: ADD UMIC NO; UR ASCORBIC ACID NEGATIVE (NEGATIVE); UR BILIRUBIN (Dip) NEGATIVE (NEGATIVE); UR BLOOD (Dip) NEGATIVE (NEGATIVE); UR CLARITY CLEAR (CLEAR); UR COLOR YELLOW (YELLOW); UR GLUCOSE (Dip) 3+ mg/dL (NEGATIVE); UR KETONES (Dip) TRACE mg/dL (NEGATIVE); UR LEUKOCYTE ESTERASE (Dip) NEGATIVE Leu/ul (NEGATIVE); UR NITRITE (Dip) NEGATIVE (NEGATIVE); UR SPECIFIC GRAVITY (Dip) 1.014 (1.003-1.030); UR TOTAL PROTEIN (Dip) NEGATIVE (NEGATIVE); UR UROBILINOGEN (Dip) NEGATIVE (NEGATIVE)
== END 2018-06-09 09:41 | disposition home or self-care (01) ==
LOC: E/R 09:41
DX: R10.84 Generalized abdominal pain (principal); R19.7 Diarrhea, unspecified; E11.9 Type 2 diabetes mellitus without complications; I10 Essential (primary) hypertension; I25.10 Atherosclerotic heart disease of native coronary artery without angina pectoris; Z79.4 Long term (current) use of insulin; Z79.82 Long term (current) use of aspirin
CPT/HCPCS: 36415; 74176; 80053; 81003; 83690; 85025; 85610; 85730; 96361; 96374; 96375; 99285-25

== ENCOUNTER 2018-07-15 21:35 | Emergency (ER) | payer OTHER | END 2018-07-15 22:44 | disposition home or self-care (01) | LOC: FTE 21:35 | DX: J30.1 Allergic rhinitis due to pollen (principal); E11.9 Type 2 diabetes mellitus without complications; I25.10 Atherosclerotic heart disease of native coronary artery without angina pectoris; Z79.4 Long term (current) use of insulin; Z79.82 Long term (current) use of aspirin | CPT/HCPCS: 99282; Z7502 ==

== ENCOUNTER 2018-08-16 23:28 | Emergency (ER) | payer OTHER ==
[2018-08-17] MEDS: HYDROmorphONE 1 MG/ML SYG IV (00:58)
[2018-08-17] MEDS: SOD CHLORIDE 0.9% 1,000 ML IV (00:58)
[2018-08-17] MEDS: ONDANSETRON 4 MG INJ IV (00:58)
[2018-08-17 01:10] LABS: ADD MAN DIFF? NO
[2018-08-17 01:11] LABS: WHITE BLOOD COUNT 7.7 10^3/ul (4.8-10.8)
[2018-08-17 01:11] LABS: BASOPHIL # 0.1 10^3/ul (0.0-0.1); BASOPHILS % 0.7 % (0.0-2.0); EOSINOPHILS # 0.2 10^3/ul (0.0-0.5); HEMATOCRIT 40.4 % (37.0-47.0); HEMOGLOBIN 13.4 g/dl (12.0-16.0); LYMPHOCYTES # 2.1 10^3/ul (0.8-2.9); LYMPHOCYTES % 27.6 % (15.0-51.0); MEAN CORPUSCULAR HEMOGLOBIN 30.5 pg (29.0-33.0); MEAN CORPUSCULAR HGB CONC 33.2 g/dl (32.0-37.0); MEAN CORPUSCULAR VOLUME 91.8 fl (82.0-101.0); MEAN PLATELET VOLUME 11.5 fl (7.4-10.4); MONOCYTE # 0.6 10^3/ul (0.3-0.9); MONOCYTES % 8.3 % (0.0-11.0); NEUTROPHIL # 4.7 10^3/ul (1.6-7.5); NEUTROPHILS % 61.1 % (39.0-77.0); PLATELET COUNT 284 10^3/UL (140-415); RED CELL DISTRIBUTION WIDTH 12.2 % (11.5-14.5)
[2018-08-17 01:19] LABS: ADD UMIC YES; UR ASCORBIC ACID NEGATIVE (NEGATIVE); UR BILIRUBIN (Dip) NEGATIVE (NEGATIVE); UR BLOOD (Dip) NEGATIVE (NEGATIVE); UR CLARITY SLIGHTLY CLOUDY (CLEAR); UR COLOR YELLOW (YELLOW); UR GLUCOSE (Dip) 3+ mg/dL (NEGATIVE); UR KETONES (Dip) NEGATIVE (NEGATIVE); UR LEUKOCYTE ESTERASE (Dip) 1+ Leu/ul (NEGATIVE); UR MUCUS FEW /HPF (NONE SEEN); UR NITRITE (Dip) NEGATIVE (NEGATIVE); UR RBC 4 /HPF (0-5); UR SPECIFIC GRAVITY (Dip) 1.024 (1.003-1.030); UR TOTAL PROTEIN (Dip) NEGATIVE (NEGATIVE); UR UROBILINOGEN (Dip) NEGATIVE (NEGATIVE); UR WBC 28 /HPF (0-5)
[2018-08-17 01:40] LABS: ALANINE AMINOTRANSFERASE 15 IU/L (13-69); ALBUMIN 3.7 g/dl (3.3-4.9); ALBUMIN/GLOBULIN RATIO 1.23; ALKALINE PHOSPHATASE 154 IU/L (42-121); ANION GAP 8 (5-13); ASPARTATE AMINO TRANSFERASE 23 IU/L (15-46); BILIRUBIN,INDIRECT 0.2 mg/dl (0-1.1); BILIRUBIN,TOTAL 0.2 mg/dl (0.2-1.3); BLOOD UREA NITROGEN 38 mg/dl (7-20); CALCIUM 9.5 mg/dl (8.4-10.2); CARBON DIOXIDE 31 mmol/L (21-31); CHLORIDE 99 mmol/L (97-110); CREATININE 0.58 mg/dl (0.44-1.00); Estimated GFR > 60 mL/min (>60); POTASSIUM 4.9 mmol/L (3.5-5.1); SODIUM 138 mmol/L (135-144); TOTAL PROTEIN 6.7 g/dl (6.1-8.1)
[2018-08-17 01:42] LABS: GLUCOSE 474 mg/dl (70-220)
[2018-08-17] MEDS: ACCU-CHEK XX (02:00)
[2018-08-17] MEDS: CEFTRIAXONE 1 GM/50 ML (PMX) 50 ML IVPB (02:31)
[2018-08-17] MEDS: INSULIN LISPRO 100 UNIT/ML VIAL SC (02:36)
== END 2018-08-17 05:26 | disposition home or self-care (01) ==
LOC: E/R 23:28
DX: N39.0 Urinary tract infection, site not specified (principal); K59.00 Constipation, unspecified; E11.9 Type 2 diabetes mellitus without complications; I25.10 Atherosclerotic heart disease of native coronary artery without angina pectoris; Z79.4 Long term (current) use of insulin; Z79.82 Long term (current) use of aspirin
CPT/HCPCS: 36415; 74176; 80053; 81001; 82962; 85025; 87040-91; 87086; 96372; 96374; 96375; 99285-25

== ENCOUNTER 2018-09-12 15:02 | Emergency (ER) | payer OTHER ==
[2018-09-12 17:35] LABS: ADD MAN DIFF? NO
[2018-09-12] MEDS: CEFTRIAXONE 1 GM/50 ML (PMX) 50 ML IVPB (17:39)
[2018-09-12] MEDS: SOD CHLORIDE 0.9% 1,000 ML IV (17:39)
[2018-09-12] MEDS: KETOROLAC 15 MG INJ IV (17:39)
[2018-09-12 17:42] LABS: ADD UMIC NO; UR ASCORBIC ACID NEGATIVE (NEGATIVE); UR BILIRUBIN (Dip) NEGATIVE (NEGATIVE); UR BLOOD (Dip) NEGATIVE (NEGATIVE); UR CLARITY CLEAR (CLEAR); UR COLOR YELLOW (YELLOW); UR GLUCOSE (Dip) 3+ mg/dL (NEGATIVE); UR KETONES (Dip) NEGATIVE (NEGATIVE); UR LEUKOCYTE ESTERASE (Dip) NEGATIVE Leu/ul (NEGATIVE); UR NITRITE (Dip) NEGATIVE (NEGATIVE); UR SPECIFIC GRAVITY (Dip) 1.028 (1.003-1.030); UR TOTAL PROTEIN (Dip) NEGATIVE (NEGATIVE); UR UROBILINOGEN (Dip) NEGATIVE (NEGATIVE)
[2018-09-12 17:43] LABS: WHITE BLOOD COUNT 7.8 10^3/ul (4.8-10.8)
[2018-09-12 17:43] LABS: BASOPHILS % 0.5 % (0.0-2.0); EOSINOPHILS # 0.1 10^3/ul (0.0-0.5); EOSINOPHILS % 1.3 % (0.0-7.0); HEMATOCRIT 41.6 % (37.0-47.0); LYMPHOCYTES # 1.8 10^3/ul (0.8-2.9); LYMPHOCYTES % 23.1 % (15.0-51.0); MEAN CORPUSCULAR HEMOGLOBIN 30.8 pg (29.0-33.0); MEAN CORPUSCULAR HGB CONC 33.7 g/dl (32.0-37.0); MEAN CORPUSCULAR VOLUME 91.4 fl (82.0-101.0); MEAN PLATELET VOLUME 10.4 fl (7.4-10.4); MONOCYTE # 0.7 10^3/ul (0.3-0.9); MONOCYTES % 8.7 % (0.0-11.0); NEUTROPHIL # 5.1 10^3/ul (1.6-7.5); PLATELET COUNT 285 10^3/UL (140-415); RED BLOOD COUNT 4.55 10^6/ul (4.20-5.40); RED CELL DISTRIBUTION WIDTH 12.7 % (11.5-14.5)
[2018-09-12 17:56] LABS: ALANINE AMINOTRANSFERASE 20 IU/L (13-69); ALBUMIN 4.1 g/dl (3.3-4.9); ALKALINE PHOSPHATASE 140 IU/L (42-121); ANION GAP 6 (5-13); ASPARTATE AMINO TRANSFERASE 21 IU/L (15-46); BILIRUBIN,INDIRECT 0.5 mg/dl (0-1.1); BILIRUBIN,TOTAL 0.5 mg/dl (0.2-1.3); BLOOD UREA NITROGEN 27 mg/dl (7-20); CARBON DIOXIDE 30 mmol/L (21-31); CHLORIDE 101 mmol/L (97-110); CREATININE 0.72 mg/dl (0.44-1.00); Estimated GFR > 60 mL/min (>60); GLUCOSE 387 mg/dl (70-220); LIPASE 218 U/L (23-300); POTASSIUM 4.6 mmol/L (3.5-5.1); SODIUM 137 mmol/L (135-144); TOTAL PROTEIN 7.5 g/dl (6.1-8.1)
== END 2018-09-12 19:10 | disposition home or self-care (01) ==
LOC: E/R 15:02
DX: N39.0 Urinary tract infection, site not specified (principal); E11.9 Type 2 diabetes mellitus without complications; I25.10 Atherosclerotic heart disease of native coronary artery without angina pectoris; I10 Essential (primary) hypertension; Z79.4 Long term (current) use of insulin; Z79.82 Long term (current) use of aspirin
CPT/HCPCS: 36415; 74176; 80053; 81003; 83690; 85025; 87086; 96374; 96375; 99285-25

== ENCOUNTER 2018-11-16 19:22 | Emergency (ER) | payer OTHER ==
[2018-11-16] MEDS: SOD CHLORIDE 0.9% 500 ML IV (19:57)
[2018-11-16] MEDS: ONDANSETRON 4 MG INJ IV (19:59)
[2018-11-16] MEDS: FAMOTIDINE 20 MG INJ IV (20:00)
[2018-11-16 20:06] LABS: ADD MAN DIFF? NO
[2018-11-16 20:23] LABS: BASOPHIL # 0.1 10^3/ul (0.0-0.1); BASOPHILS % 0.6 % (0.0-2.0); EOSINOPHILS # 0.2 10^3/ul (0.0-0.5); EOSINOPHILS % 2.1 % (0.0-7.0); HEMATOCRIT 40.1 % (37.0-47.0); HEMOGLOBIN 13.6 g/dl (12.0-16.0); LYMPHOCYTES # 1.8 10^3/ul (0.8-2.9); LYMPHOCYTES % 21.8 % (15.0-51.0); MEAN CORPUSCULAR HEMOGLOBIN 31.2 pg (29.0-33.0); MEAN CORPUSCULAR HGB CONC 33.9 g/dl (32.0-37.0); MONOCYTE # 0.7 10^3/ul (0.3-0.9); MONOCYTES % 8.2 % (0.0-11.0); NEUTROPHIL # 5.4 10^3/ul (1.6-7.5); NEUTROPHILS % 66.8 % (39.0-77.0); PLATELET COUNT 282 10^3/UL (140-415); RED BLOOD COUNT 4.36 10^6/ul (4.20-5.40); RED CELL DISTRIBUTION WIDTH 12.3 % (11.5-14.5)
[2018-11-16 20:23] LABS: WHITE BLOOD COUNT 8.1 10^3/ul (4.8-10.8)
[2018-11-16 20:28] LABS: ALANINE AMINOTRANSFERASE 27 IU/L (13-69); ALBUMIN 4.1 g/dl (3.3-4.9); ALKALINE PHOSPHATASE 181 IU/L (42-121); ANION GAP 8 (5-13); ASPARTATE AMINO TRANSFERASE 24 IU/L (15-46); BILIRUBIN,INDIRECT 0.4 mg/dl (0-1.1); BILIRUBIN,TOTAL 0.4 mg/dl (0.2-1.3); BLOOD UREA NITROGEN 33 mg/dl (7-20); CALCIUM 9.4 mg/dl (8.4-10.2); CARBON DIOXIDE 28 mmol/L (21-31); CHLORIDE 99 mmol/L (97-110); CREATININE 0.81 mg/dl (0.44-1.00); Estimated GFR > 60 mL/min (>60); GLUCOSE 363 mg/dl (70-220); LIPASE 158 U/L (23-300); POTASSIUM 5.2 mmol/L (3.5-5.1); SODIUM 135 mmol/L (135-144); TOTAL PROTEIN 7.5 g/dl (6.1-8.1)
[2018-11-16 21:36] LABS: ADD UMIC NO; UR ASCORBIC ACID NEGATIVE (NEGATIVE); UR BILIRUBIN (Dip) NEGATIVE (NEGATIVE); UR BLOOD (Dip) NEGATIVE (NEGATIVE); UR CLARITY CLEAR (CLEAR); UR COLOR COLORLESS (YELLOW); UR GLUCOSE (Dip) 3+ mg/dL (NEGATIVE); UR KETONES (Dip) NEGATIVE (NEGATIVE); UR LEUKOCYTE ESTERASE (Dip) NEGATIVE Leu/ul (NEGATIVE); UR NITRITE (Dip) NEGATIVE (NEGATIVE); UR SPECIFIC GRAVITY (Dip) 1.015 (1.003-1.030); UR TOTAL PROTEIN (Dip) NEGATIVE (NEGATIVE); UR UROBILINOGEN (Dip) NEGATIVE (NEGATIVE)
== END 2018-11-16 21:53 | disposition home or self-care (01) ==
LOC: FTE 19:22
DX: E11.43 Type 2 diabetes mellitus with diabetic autonomic (poly)neuropathy (principal); I25.10 Atherosclerotic heart disease of native coronary artery without angina pectoris; Z79.4 Long term (current) use of insulin
CPT/HCPCS: 36415; 74176; 80053; 81003; 83690; 85025; 96374; 96375; 99285-25

== ENCOUNTER 2018-11-19 20:10 | Emergency (ER) | payer OTHER ==
[2018-11-19 22:08] LABS: ADD MAN DIFF? NO
[2018-11-19 22:12] LABS: BASOPHILS % 0.4 % (0.0-2.0); EOSINOPHILS # 0.2 10^3/ul (0.0-0.5); HEMATOCRIT 45.4 % (37.0-47.0); HEMOGLOBIN 15.2 g/dl (12.0-16.0); LYMPHOCYTES % 22.3 % (15.0-51.0); MEAN CORPUSCULAR HEMOGLOBIN 31.1 pg (29.0-33.0); MEAN CORPUSCULAR HGB CONC 33.5 g/dl (32.0-37.0); MEAN PLATELET VOLUME 11.1 fl (7.4-10.4); MONOCYTE # 0.5 10^3/ul (0.3-0.9); NEUTROPHIL # 6.2 10^3/ul (1.6-7.5); NEUTROPHILS % 68.9 % (39.0-77.0); PLATELET COUNT 224 10^3/UL (140-415); RED BLOOD COUNT 4.88 10^6/ul (4.20-5.40); RED CELL DISTRIBUTION WIDTH 12.3 % (11.5-14.5)
[2018-11-19 22:29] LABS: ANION GAP 8 (5-13); BLOOD UREA NITROGEN 31 mg/dl (7-20); CALCIUM 10.4 mg/dl (8.4-10.2); CARBON DIOXIDE 29 mmol/L (21-31); CHLORIDE 101 mmol/L (97-110); Estimated GFR > 60 mL/min (>60); GLUCOSE 371 mg/dl (70-220); POTASSIUM 4.6 mmol/L (3.5-5.1); SODIUM 138 mmol/L (135-144)
== END 2018-11-19 23:05 | disposition home or self-care (01) ==
LOC: FTE 20:10
DX: R05 Cough (principal); E11.9 Type 2 diabetes mellitus without complications; Z79.4 Long term (current) use of insulin
CPT/HCPCS: 71046; 80048; 85025; 87880; 99285-25